=== PATIENT | female | born 1975 | race Caucasian/White ===

== ENCOUNTER → 2016-12-26 | Outpatient (CLI) | payer OTHER ==
[~2016-12-26] MED LIST: None at this Time
== END ==
LOC: STAR 07:45
PROVIDERS: ATTEND Surgery
DX: Z02.9 Encounter for administrative examinations, unspecified (principal)

== ENCOUNTER 2016-12-31 06:23 | Day surgery (SDC) | payer OTHER ==
[~2016-12-31] VITALS: Ht 162.6 cm; Wt 76.8 kg
[2016-12-31] MEDS ORDERED: SILVER SULF. CRM 1%, 50GM ONE (07:04)
[2016-12-31] MEDS ORDERED: LACTATED RINGERS 1,000 ML IV SCH (07:05)
[2016-12-31] MEDS ORDERED: BUPIVACAINE/PF-EPI 0.5% 1:200K ONE (07:05)
[2016-12-31] MEDS ORDERED: LIDOCAINE GEL 2%, 5ML ONE (07:05)
[2016-12-31 07:06] VITALS: BP 107/76
[2016-12-31] MEDS ORDERED: LIDOCAINE 1%, 2ML SQ PRN (07:30)
[2016-12-31 07:33] LABS: HCG UR OBC PASS
[2016-12-31] MEDS ORDERED: MIDAZOLAM 1 MG/ML, 2ML ONE (07:33)
[2016-12-31] MEDS ORDERED: FENTANYL PF 250 MCG/5ML ONE (07:33)
[2016-12-31] MEDS ORDERED: HYDROmorphone 1 MG/ML, 1ML ONE (07:33)
[2016-12-31] MEDS ORDERED: ONDANSETRON 2MG/ML, 2ML ONE (07:44)
[2016-12-31] MEDS ORDERED: CEFAZOLIN 1,000 MG ONE (07:44)
[2016-12-31] MEDS ORDERED: KETOROLAC 30 MG/1 ML ONE (07:44)
[2016-12-31] MEDS ORDERED: PROPOFOL 10 MG/ML, 20ML ONE (07:44)
[2016-12-31] MEDS ORDERED: ROCURONIUM 10 MG/ML ONE (07:44)
[2016-12-31] MEDS ORDERED: DEXAMETHASONE 4 MG/ML, 1ML ONE (07:44)
[2016-12-31] MEDS ORDERED: FENTANYL PF 100 MCG/2ML IV PRN (08:30)
[2016-12-31] MEDS ORDERED: ONDANSETRON 2MG/ML, 2ML IVPush PRN ×2 (08:30)
[2016-12-31] MEDS ORDERED: morphine SULFATE 10 MG/ML, 1ML IVPush PRN (08:30)
[2016-12-31] MEDS ORDERED: KETOROLAC 30 MG/1 ML IVPush PRN (08:30)
[2016-12-31] MEDS ORDERED: ALBUTEROL/IPRATROPIUM 2.5MG/0.5MG, 3 ML NPPB PRN (08:30)
[2016-12-31] MEDS ORDERED: ACETAMINOPHEN 325 MG TABLET PO PRN (08:30)
[2016-12-31] MEDS ORDERED: OXYcodone 5 MG/5 ML ORAL.SOL UDC PO PRN (08:30)
[2016-12-31] MEDS ORDERED: PROMETHAZINE 25 MG/ML, 1ML IV PRN (08:30)
[2016-12-31] MEDS ORDERED: hydrALAzine 20 MG/ML, 1ML IV PRN (08:30)
[2016-12-31] MEDS ORDERED: MEPERIDINE/PF 25MG/0.5ML IVPush PRN (08:30)
[2016-12-31] MEDS ORDERED: LABETALOL 5MG/ML, 20ML IV PRN (08:30)
[2016-12-31] MEDS ORDERED: HYDROmorphone 1 MG/ML, 1ML IV PRN (08:30)
[2016-12-31] MEDS ORDERED: MIDAZOLAM 1 MG/ML, 2ML IV PRN (08:30)
[2016-12-31] MEDS ORDERED: ACETAMINOPHEN 325 MG TABLET ONE (08:44)
[2016-12-31] MEDS ORDERED: OXYcodone 5 MG/5 ML ORAL.SOL UDC ONE (08:44)
== END 2016-12-31 13:35 | disposition home or self-care (01) ==
LOC: OUT 06:23
PROVIDERS: ATTEND Surgery
DX: K64.4 Residual hemorrhoidal skin tags (principal)
CPT/HCPCS: 46250; 81025; 88304; J0690; J1100; J1170; J1885; J2250; J2405; J2704; J3010

== ENCOUNTER 2017-07-24 09:10 | Day surgery (SDC) | payer OTHER ==
[~2017-07-24] VITALS: Ht 163.8 cm; Wt 77.8 kg
[2017-07-24] MEDS ORDERED: LACTATED RINGERS 1,000 ML IV SCH (09:46)
[2017-07-24 09:51] VITALS: BP 108/72
[2017-07-24 10:02] LABS: HEMATOCRIT 40.1 % (34.6-47.8); HEMOGLOBIN 13.5 g/dL (11.7-16.4); WHITE BLOOD COUNT 6.2 x10^3/uL (3.4-10)
[2017-07-24 10:15] LABS: HCG UR LOT HCG7030192
[2017-07-24 10:15] LABS: BLOOD UREA NITROGEN 14 mg/dL (7-18)
[2017-07-24 10:19] LABS: HCG UR OBC PASS
[2017-07-24] MEDS ORDERED: FLU VACCINE PER PHARMACY IM ONE (10:30)
[2017-07-24] MEDS ORDERED: BUPIVACAINE/PF 0.5% ONE (10:38)
[2017-07-24] MEDS ORDERED: EPINEPHRINE 1 MG/ML, 1ML ONE (10:38)
[2017-07-24] MEDS ORDERED: LIDOCAINE GEL 2%, 5ML ONE (10:46)
[2017-07-24] MEDS ORDERED: SILVER SULF. CRM 1% , 25GM ONE (10:46)
[2017-07-24] MEDS ORDERED: MIDAZOLAM 1 MG/ML, 2ML ONE (11:38)
[2017-07-24] MEDS ORDERED: FENTANYL PF 100 MCG/2ML ONE ×2 (11:39→12:43)
[2017-07-24] MEDS ORDERED: CEFAZOLIN 1,000 MG ONE ×2 (11:56)
[2017-07-24] MEDS ORDERED: hydrALAzine 20 MG/ML, 1ML IV PRN (12:00)
[2017-07-24] MEDS ORDERED: EPHEDRINE 50 MG/ML, 1ML IVPush PRN (12:00)
[2017-07-24] MEDS ORDERED: ONDANSETRON 2MG/ML, 2ML IVPush PRN ×2 (12:00→13:00)
[2017-07-24] MEDS ORDERED: ALBUTEROL SULFATE 2.5 MG/3 ML NPPB PRN (12:00)
[2017-07-24] MEDS ORDERED: ACETAMINOPHEN 325 MG TABLET PO PRN (12:00)
[2017-07-24] MEDS ORDERED: HYDROcodone/APAP 7.5-325MG/15ML UDC PO PRN (12:00)
[2017-07-24] MEDS ORDERED: OXYcodone 5 MG/5 ML ORAL.SOL UDC PO PRN (12:00)
[2017-07-24] MEDS ORDERED: MEPERIDINE/PF 25MG/0.5ML IVPush PRN (12:00)
[2017-07-24] MEDS ORDERED: KETOROLAC 30 MG/1 ML IV PRN (12:00)
[2017-07-24] MEDS ORDERED: HYDROmorphone 1 MG/ML, 1ML IV PRN (12:00)
[2017-07-24] MEDS ORDERED: METOPROLOL 1 MG/ML, 5ML IV PRN (12:00)
[2017-07-24] MEDS ORDERED: MIDAZOLAM 1 MG/ML, 2ML IV PRN (12:00)
[2017-07-24] MEDS ORDERED: LABETALOL 5MG/ML, 20ML IV PRN (12:00)
[2017-07-24] MEDS ORDERED: DEXAMETHASONE 4 MG/ML, 1ML ONE (12:09)
[2017-07-24] MEDS ORDERED: ONDANSETRON 2MG/ML, 2ML ONE ×2 (12:09)
[2017-07-24] MEDS ORDERED: KETOROLAC 30 MG/1 ML ONE (12:43)
[2017-07-24] MEDS ORDERED: OXYcodone 5 MG/5 ML ORAL.SOL UDC ONE (12:43)
[2017-07-24] MEDS ORDERED: ACETAMINOPHEN 650 MG/20.3 ML UDC ONE (12:43)
[2017-07-24] MEDS: FENTANYL PF 100 MCG/2ML IV PRN ×2 (12:45→12:56)
[2017-07-24] MEDS ORDERED: HYDROmorphone 1 MG/ML, 1ML ONE (12:56)
[2017-07-24] MEDS ORDERED: KETOROLAC 30 MG/1 ML IVPush PRN (13:00)
[2017-07-24] MEDS ORDERED: morphine SULFATE 10 MG/ML, 1ML IVPush PRN (13:00)
[2017-07-24] MEDS ORDERED: SUCCINYLCHOLINE 20 MG/ML, 10ML ONE (16:40)
[2017-07-24] MEDS ORDERED: ROCURONIUM 10 MG/ML ONE (16:40)
== END 2017-07-24 15:45 ==
LOC: OUT 09:10
PROVIDERS: ATTEND Surgery
DX: K64.4 Residual hemorrhoidal skin tags (principal)
CPT/HCPCS: 36415; 46250; 80048; 81025; 85025; 88304; J0171; J0330; J0690; J1100; J1170; J1885; J2250; J2405; J3010; J3490